=== PATIENT | female | born 1970 ===

== ENCOUNTER 2016-09-11 01:19 | Observation (INO) | payer OTHER ==
[2016-09-11] MEDS ORDERED: Sodium Chloride 0.9% 1,000 ML IV STA ×2 (02:43→03:46)
--- NOTE | 2016-09-11 03:06 | ED PDOC ---
HPI: General Adult Time Seen by Provider: 09/11/16 02:10 Chief Complaint (Nursing): Dental Pain Chief Complaint (Provider): bleeding from gums History Per: Patient, Family History/Exam Limitations: no limitations Onset/Duration Of Symptoms: Hrs Current Symptoms Are (Timing): Gone Now Additional History Per: Patient, Family Additional Complaint(s): 46 y/o female history of hypothyroid, anemia presents for eval of gingival bleeding x 5 hours. Patient states bleeding started spontaneously around 20:00 last night, and did not stop until arrival to ED this am. notes moderate amount of blood loss. Patient now complaining of dizziness. notes patient to have almost "passed out" upon arrival to ED. Denies headache, vision changes, extremity numbness/weakness, chest pain, shortness of breath, palpitations, abdominal pain. states patient has had similar episodes in past, and has required blood transfusion at [facility] [place] in 2014. states patient saw a community development specialist once a few months ago, was sent for blood work, but never followed up for results. Past Medical History Reviewed: Historical Data, Nursing Documentation, Vital Signs Vital Signs: Last Vital Signs Temp 97.8 F 09/11/16 04:37 Pulse 78 09/11/16 05:58 Resp 15 09/11/16 05:58 BP 127/68 09/11/16 05:58 Pulse Ox 100 09/11/16 05:58 - Medical History PMH: Anemia, Hypothyroidism - Surgical History Surgical History: Appendectomy (2009) - Family History Family History: States: Unknown Family Hx - Immunization History Hx Tetanus Toxoid Vaccination: No Hx Influenza Vaccination: No Hx Pneumococcal Vaccination: No - Home Medications Home Medications: Ambulatory Orders Medication Instructions Recorded No Known Home Med 09/11/16 - Allergies Allergies/Adverse Reactions: Allergies Allergy/AdvReac Type Severity Reaction Status Date / Time No Known Allergies Allergy Verified 04/20/16 23:12 Review of Systems ROS Statement: Except As Marked, All Systems Reviewed And Found Negative Neurological: Positive for: Dizziness Physical Exam - Reviewed Nursing Documentation Reviewed: Yes Vital Signs Reviewed: Yes - Physical Exam Appears: Positive for: Well, Non-toxic, Uncomfortable Head Exam: Positive for: ATRAUMATIC, NORMAL INSPECTION, NORMOCEPHALIC Skin: Positive for: Normal Color Eye Exam: Positive for: Normal appearance ENT: Positive for: Normal ENT Inspection Cardiovascular/Chest: Positive for: Regular Rate, Rhythm Respiratory: Positive for: Normal Breath Sounds Gastrointestinal/Abdominal: Positive for: Normal Exam Extremity: Positive for: Normal ROM Neurologic/Psych: Positive for: Alert, Oriented - Laboratory Results Result Diagrams: 09/11/16 03:00 09/11/16 03:00 - ECG ECG: Positive for: Viewed By Me (reviewed by ED attending) ECG Rhythm: Positive for: Sinus Rhythm O2 Sat by Pulse Oximetry: 99 Pulse Ox Interpretation: Normal - Radiology X-Ray: Viewed By Me X-Ray Interpretation: No Acute Disease - Progress ED Course And Treament: Patient BP 70/30, HR 80's. EKG, labs, IV fluid boluses ordered On re-eval, patient states she is feeling better; BP 90/60 Dr. Hall spoke with Dr. Strong, hospitalist on-call, for placement on observation for symptomatic anemia, hypotension Disposition - Clinical Impression Clinical Impression: Bleeding diathesis, Anemia, Hypotension - Patient ED Disposition Is Patient to be Admitted: Yes - Disposition Disposition Time: 03:45 Condition: FAIR - Pt Status Changed To: Hospital Disposition Of: Observation
[2016-09-11 03:15] LABS: BASO # 0.1 K/uL (0.0-0.2); BASO % 1.1 % (0.0-2.0); EOS # 0.2 K/uL (0.0-0.7); EOS % 2.8 % (0.0-4.0); HEMATOCRIT 23.3 % (34.0-47.0); LYMPH # 3.4 K/uL (1.0-4.3); LYMPH % 45.5 % (20.0-40.0); MEAN CELL VOLUME 78.9 fl (81.0-99.0); MEAN CORPUSCULAR HEMOGLOBIN 26.9 pg (27.0-31.0); MEAN CORPUSCULAR HGB CONC 34.1 g/dL (33.0-37.0); MEAN PLATELET VOLUME 9.7 fl (7.2-11.7); MONO # 0.4 K/uL (0.0-0.8); MONO % 5.9 % (0.0-10.0); NEUT # 3.4 K/uL (1.8-7.0); NEUT % 44.7 % (50.0-75.0); NRBC % 0.1 % (0.0-0.0); RED CELL DISTRIBUTION WIDTH 13.7 % (11.5-14.5); WHITE BLOOD COUNT 7.5 K/uL (4.8-10.8)
[2016-09-11 03:17] LABS: CHLORIDE 106 mmol/L (98-107)
[2016-09-11 03:18] LABS: POTASSIUM 3.3 MMOL/L (3.6-5.0); SODIUM 141 mmol/l (132-148)
[2016-09-11 03:20] LABS: ALB/GLOB RATIO 1.3 (1.0-2.1); ALKALINE PHOSPHATASE 186 U/L (38-126); AST/SGOT 90 U/L (14-36); BILIRUBIN,TOTAL 0.5 mg/dl (0.2-1.3); BLOOD UREA NITROGEN 22 mg/dl (7-17); CARBON DIOXIDE 24 mmol/L (22-30); GFR AFRICAN-AMERICAN > 60; GLUCOSE,RANDOM 150 mg/dL (65-105); TOTAL PROTEIN 7.2 G/DL (6.3-8.2)
[2016-09-11 03:21] LABS: ALT/SGPT 79 U/L (9-52); CALCIUM 8.9 mg/dL (8.4-10.2)
[2016-09-11 04:16] LABS: PARTIAL THROMBOPLASTIN TIME 29.7 SECONDS (23.3-32.5)
[2016-09-11] MEDS ORDERED: Sodium Chloride 0.9% 1,000 ML IV SCH (04:30)
[2016-09-11] MEDS ORDERED: KCL 40MEQ/NS 1L 1,000 ML IV SCH (04:31)
--- NOTE | 2016-09-11 04:32 | CP.PCM.HP ---
History of Present Illness - History of Present Illness History of Present Illness: CC: Persistent gingival bleeding HPI: This is a 46 y/o female who was in the process of being worked up for VW disease, who comes in this evening after persistent gingival bleeding. Apparently bleeding started this evening ? after brushing teeth. It persisted until they arrived in the ED this AM. Patient had c/o dizziness, and noted she almost 'passed out' just after arriving here. Patient denies CP/SOB. Per , patient has had other episodes of bleeding in the past, and in 2014 required transfusion. 14 systems reviewed, negative other than HPI MHx: ?VW disease SHx: None Allergies: NKDA Medications: Not taking any medications Family Hx: Patient unable to provide Social Hx: Lives with , no tobacco, no EtOH Present on Admission - Present on Admission Any Indicators Present on Admission: No Past Patient History - Infectious Disease Hx of Infectious Diseases: None - Past Social History Smoking Status: Never Smoked - ENDOCRINE/METABOLIC Hx Hypothyroidism: Yes - HEMATOLOGICAL/ONCOLOGICAL Hx Anemia: Yes - PSYCHIATRIC Hx Substance Use: No - SURGICAL HISTORY Hx Appendectomy: Yes (2009) - ANESTHESIA Hx Anesthesia: Yes Meds Allergies/Adverse Reactions: Allergies Allergy/AdvReac Type Severity Reaction Status Date / Time No Known Allergies Allergy Verified 04/20/16 23:12 Physical Exam - Constitutional Appears: No Acute Distress - Head Exam Head Exam: ATRAUMATIC, NORMOCEPHALIC - Eye Exam Eye Exam: EOMI, PERRL - ENT Exam ENT Exam: Mucous Membranes Dry Additional comments: Some blood noted in mouth, no active bleeding - Neck Exam Neck exam: Positive for: Full Rom - Respiratory Exam Respiratory Exam: Clear to Auscultation Bilateral, NORMAL BREATHING PATTERN - Cardiovascular Exam Cardiovascular Exam: REGULAR RHYTHM, +S1, +S2 - GI/Abdominal Exam GI & Abdominal Exam: Normal Bowel Sounds, Soft - Extremities Exam Extremities exam: Positive for: full ROM, normal inspection - Psychiatric Exam Psychiatric exam: Normal Affect, Normal Mood - Skin Skin Exam: Dry, Warm Results - Vital Signs Recent Vital Signs: Last Vital Signs Temp 98.9 F 09/11/16 01:38 Pulse 76 09/11/16 03:55 Resp 14 09/11/16 03:55 BP 109/65 09/11/16 03:55 Pulse Ox 100 09/11/16 03:55 - Labs Result Diagrams: 09/11/16 03:00 09/11/16 03:00 Labs: Laboratory Results - last 24 hr 09/11/16 03:50 PT 11.4 H INR 1.10 H APTT 29.7 Assessment & Plan (1) Anemia Assessment and Plan: 46 y/o with possibly undiagnosed coagulopathy (?VWD) presenting with persistent gingival bleeding and significant anemia. -Admit for obs/tele -Repeat CBC in 4h -Type and screen -Heme consult ([place]) -SCDs only for DVT PPx Status: Acute (2) DVT prophylaxis Status: Acute (3) Gingival bleeding Status: Acute
[2016-09-11 07:11] LABS: HEMATOCRIT 20.8 % (34.0-47.0); MEAN CORPUSCULAR HEMOGLOBIN 26.7 pg (27.0-31.0); MEAN CORPUSCULAR HGB CONC 33.8 g/dL (33.0-37.0); WHITE BLOOD COUNT 6.1 K/uL (4.8-10.8)
--- NOTE | 2016-09-11 07:43 | CARD ---
APPROVED REPORT EKG Measurement Heart [id number] <Conclusion> Normal sinus rhythm Nonspecific T wave abnormality Prolonged QT Abnormal ECG
--- NOTE | 2016-09-11 13:12 | CP.PCM.CON ---
History of Present Illness - History of Present Illness History of Present Illness: 46 year old female with a history of type 1 von willebrands disease, presenting with prolonged gingival bleeding and anemia. The patient reports to prolonged spontaneous gingival bleeding for several hours. She began to feel dizzy which prompted her to bring her to the ER. In the ER her hgb nadirid at 7 and she was transfused 1U PRBC. She reports to feeling better and her gingival bleeding has resolved. Past medical history: Type 1 VWD Past surgical history: None Family history: Brother get frequent node bleedings. Social history: Denies tobacco, alcohol, and illicit drug use. Allergies: NKA Review of systems: All remaining review of systems including HEENT, cardiovascular, respiratory, gastrointestinal, genitourinary, musculoskeletal, dermatologic, neurologic, and psychiatric are negative unless mentioned in the HPI. Past Patient History - Infectious Disease Hx of Infectious Diseases: None - Past Social History Smoking Status: Never Smoked - ENDOCRINE/METABOLIC Hx Hypothyroidism: Yes - HEMATOLOGICAL/ONCOLOGICAL Hx Anemia: Yes - PSYCHIATRIC Hx Substance Use: No - SURGICAL HISTORY Hx Appendectomy: Yes (2009) - ANESTHESIA Hx Anesthesia: Yes Meds Allergies/Adverse Reactions: Allergies Allergy/AdvReac Type Severity Reaction Status Date / Time No Known Allergies Allergy Verified 09/11/16 15:36 - Medications Medications: Current Medications Oral Electrolytes (Kcl 40meq/ 0.9% 1l) 1,000 mls @ 122.549 mls/hr IV [id number] JAYESH Last Admin: 09/11/16 04:54 Dose: 122.549 mls/hr Physical Exam - Head Exam Head Exam: ATRAUMATIC - Eye Exam Eye Exam: Normal appearance - ENT Exam ENT Exam: Mucous Membranes Dry - Respiratory Exam Respiratory Exam: NORMAL BREATHING PATTERN - Cardiovascular Exam Cardiovascular Exam: +S1, +S2 - GI/Abdominal Exam GI & Abdominal Exam: Normal Bowel Sounds - Extremities Exam Extremities exam: Positive for: normal inspection - Neurological Exam Neurological exam: Oriented x3 - Psychiatric Exam Psychiatric exam: Normal Affect, Normal Mood - Skin Skin Exam: Warm Results - Vital Signs Recent Vital Signs: Last Vital Signs Temp 97.8 F 09/11/16 04:37 Pulse 78 09/11/16 05:58 Resp 15 09/11/16 05:58 BP 127/68 09/11/16 05:58 Pulse Ox 99 09/11/16 06:25 - Labs Result Diagrams: 09/11/16 06:57 09/11/16 03:00 Labs: Laboratory Results - last 24 hr 09/11/16 09/11/16 09/11/16 03:50 06:57 09:45 WBC 6.1 RBC 2.63 L Hgb 7.0 L Hct 20.8 L MCV 79.0 L MCH 26.7 L MCHC 33.8 RDW 14.0 Plt Count 164 Retic Count PT 11.4 H INR 1.10 H APTT 29.7 Ferritin Vitamin B12 TSH 3rd Generation 1.45 Blood Type Antibody Screen Crossmatch BBK History Checked 09/11/16 09/11/16 09/11/16 09:45 09:45 09:45 WBC RBC Hgb Hct MCV MCH MCHC RDW Plt Count Retic Count 2.1 H PT INR APTT Ferritin 8.9 Vitamin B12 532 TSH 3rd Generation Blood Type O POSITIVE Antibody Screen Negative Crossmatch See Detail BBK History Checked Patient has bt Assessment & Plan (1) Anemia Assessment and Plan: gingival bleeding; resolved work up consistent with iron deficiency anemia s/p 1U PRBC will start Venofer Status: Acute (2) Von Willebrand disease, type I Assessment and Plan: gingival bleeding resolved will give 1 dose of DDAVP outpatient f/u Thank you for this interesting consult Status: Acute
--- NOTE | 2016-09-11 15:35 | RAD ---
HISTORY: Admission COMPARISON: No prior. FINDINGS: LUNGS: No active pulmonary disease. PLEURA: No significant pleural effusion identified, no pneumothorax apparent. CARDIOVASCULAR: Normal. OSSEOUS STRUCTURES: No significant abnormalities. VISUALIZED UPPER ABDOMEN: Normal. OTHER FINDINGS: None. IMPRESSION: No active disease.
[2016-09-11] MEDS ORDERED: Desmopressin 4 mcg/ml Inj (10 ml) IV ONE (15:40)
[2016-09-11 15:58] VITALS: BMI 26.9
[2016-09-11] MEDS ORDERED: SODIUM CHLORIDE 0.9% IM ONE (16:15)
[2016-09-11] MEDS ORDERED: DESMOPRESSIN IM ONE (16:15)
[2016-09-11] MEDS ORDERED: DESMOPRESSIN IV ONE (17:00)
[2016-09-11] MEDS ORDERED: SODIUM CHLORIDE 0.9% IV ONE (17:00)
[2016-09-11 17:29] LABS: FOLATE 8.9 ng/mL
[2016-09-11 20:57] VITALS: O2SAT 99
[2016-09-12] MEDS ORDERED: KCL 40MEQ/NS 1L 1,000 ML IV SCH (06:15)
[2016-09-12 08:27] LABS: EOS # 0.2 K/uL (0.0-0.7); EOS % 3.8 % (0.0-4.0); HEMATOCRIT 23.8 % (34.0-47.0); LYMPH # 2.3 K/uL (1.0-4.3); LYMPH % 47.1 % (20.0-40.0); MEAN CELL VOLUME 80.8 fl (81.0-99.0); MEAN CORPUSCULAR HGB CONC 33.4 g/dL (33.0-37.0); MEAN PLATELET VOLUME 9.5 fl (7.2-11.7); MONO # 0.3 K/uL (0.0-0.8); MONO % 5.3 % (0.0-10.0); NEUT # 2.1 K/uL (1.8-7.0); NEUT % 42.8 % (50.0-75.0); RED CELL DISTRIBUTION WIDTH 14.8 % (11.5-14.5); WHITE BLOOD COUNT 4.9 K/uL (4.8-10.8)
[2016-09-12 08:33] VITALS: BP 127/76; PULSE 68; RESP 18; TEMP 97.6
[2016-09-12 08:41] LABS: BLOOD UREA NITROGEN 22 mg/dl (7-17); CALCIUM 8.5 mg/dL (8.4-10.2); CARBON DIOXIDE 24 mmol/L (22-30); CHLORIDE 105 mmol/L (98-107); GFR AFRICAN-AMERICAN > 60; GLUCOSE,RANDOM 108 mg/dL (65-105); SODIUM 140 mmol/l (132-148)
--- NOTE | 2016-09-12 11:15 | CP.PCM.DIS ---
Provider - Provider Date of Admission: 09/11/16 03:45 Attending physician: Karin Strong MD Primary care physician: None Consults: Hematology consult Time Spent in preparation of Discharge (in minutes): 15 Hospital Course - Lab Results Lab Results: Most Recent Lab Values WBC 4.9 K/uL (4.8-10.8) 09/12/16 08:13 RBC 2.94 Mil/uL (3.80-5.20) L 09/12/16 08:13 Hgb 7.9 g/dL (12.0-16.0) L 09/12/16 08:13 Hct 23.8 % (34.0-47.0) L 09/12/16 08:13 MCV 80.8 fl (81.0-99.0) L 09/12/16 08:13 MCH 27.0 pg (27.0-31.0) 09/12/16 08:13 MCHC 33.4 g/dL (33.0-37.0) 09/12/16 08:13 RDW 14.8 % (11.5-14.5) H 09/12/16 08:13 Plt Count 175 K/uL (130-400) 09/12/16 08:13 MPV 9.5 fl (7.2-11.7) 09/12/16 08:13 Neut % (Auto) 42.8 % (50.0-75.0) L 09/12/16 08:13 Lymph % (Auto) 47.1 % (20.0-40.0) H 09/12/16 08:13 [place] % (Auto) 5.3 % (0.0-10.0) 09/12/16 08:13 Eos % (Auto) 3.8 % (0.0-4.0) 09/12/16 08:13 Baso % (Auto) 1.0 % (0.0-2.0) 09/12/16 08:13 Neut # 2.1 K/uL (1.8-7.0) 09/12/16 08:13 Lymph # 2.3 K/uL (1.0-4.3) 09/12/16 08:13 [place] # 0.3 K/uL (0.0-0.8) 09/12/16 08:13 Eos # 0.2 K/uL (0.0-0.7) 09/12/16 08:13 Baso # 0.0 K/uL (0.0-0.2) 09/12/16 08:13 Retic Count 2.1 % (0.5-1.5) H 09/11/16 09:45 PT 11.4 SECONDS (9.6-11.2) H 09/11/16 03:50 INR 1.10 (0.92-1.08) H 09/11/16 03:50 APTT 29.7 SECONDS (23.3-32.5) 09/11/16 03:50 Sodium 140 mmol/l (132-148) 09/12/16 08:13 Potassium 4.0 MMOL/L (3.6-5.0) 09/12/16 08:13 Chloride 105 mmol/L (98-107) 09/12/16 08:13 Carbon Dioxide 24 mmol/L (22-30) 09/12/16 08:13 Anion Gap 14 (10-20) 09/12/16 08:13 BUN 22 mg/dl (7-17) H 09/12/16 08:13 Creatinine 0.7 mg/dL (0.7-1.2) 09/12/16 08:13 Est GFR ( Amer) > 60 09/12/16 08:13 Est GFR (Non-Af Amer) > 60 09/12/16 08:13 Random Glucose 108 mg/dL (65-105) H 09/12/16 08:13 Calcium 8.5 mg/dL (8.4-10.2) 09/12/16 08:13 Ferritin 8.9 ng/mL 09/11/16 09:45 Total Bilirubin 0.5 mg/dl (0.2-1.3) 09/11/16 03:00 AST 90 U/L (14-36) H 09/11/16 03:00 ALT 79 U/L (9-52) H 09/11/16 03:00 Alkaline Phosphatase 186 U/L (38-126) H 09/11/16 03:00 Total Protein 7.2 G/DL (6.3-8.2) 09/11/16 03:00 Albumin 4.0 g/dL (3.5-5.0) 09/11/16 03:00 Globulin 3.2 gm/dL (2.2-3.9) 09/11/16 03:00 Albumin/Globulin Ratio 1.3 (1.0-2.1) 09/11/16 03:00 Vitamin B12 532 pg/mL (239-931) 09/11/16 09:45 Folate 8.9 ng/mL 09/11/16 09:45 TSH 3rd Generation 1.45 mIU/ML (0.46-4.68) 09/11/16 09:45 Blood Type O POSITIVE 09/11/16 09:45 Antibody Screen Negative 09/11/16 09:45 Crossmatch See Detail 09/11/16 09:45 BBK History Checked Patient has bt 09/11/16 09:45 - Hospital Course Hospital Course: 46 year old female with a history of type 1 von willebrands disease, presented with prolonged gingival bleeding and anemia. The patient reported to prolonged spontaneous gingival bleeding for several hours. She began to feel dizzy which prompted her to bring her to the ER. In the ER her hgb was 7 and she was transfused 1U PRBC.Hematology was consulted and recommended DDAVP x 1 dose and venofer IV. Patient at present hemodynamically stable, no more bleeding. Hgb 7.[address] Rich . Will discharge patient home on ferrous sulfate. Follow up with Dr. Rich in the office in 1 week She reports to feeling better and her gingival bleeding has resolved. Discharge Exam - Head Exam Head Exam: ATRAUMATIC, NORMAL INSPECTION, NORMOCEPHALIC - Eye Exam Eye Exam: EOMI, Normal appearance, PERRL Pupil Exam: NORMAL ACCOMODATION - ENT Exam ENT Exam: Mucous Membranes Moist, Normal Exam - Neck Exam Neck exam: Full Rom - Respiratory Exam Respiratory Exam: Clear to PA & Lateral, NORMAL BREATHING PATTERN. absent: Rales, Rhonchi, Wheezes - Cardiovascular Exam Cardiovascular Exam: REGULAR RHYTHM, RRR, +S1, +S2. absent: JVD - GI/Abdominal Exam GI & Abdominal Exam: Normal Bowel Sounds, Soft. absent: Distended, Guarding, Rebound, Tenderness - Rectal Exam Rectal Exam: Deferred - Extremities Exam Extremities exam: normal capillary refill, normal inspection, pedal pulses present - Back Exam Back exam: NORMAL INSPECTION - Neurological Exam Neurological exam: Alert, CN II-XII Intact, Oriented x3, Reflexes Normal - Psychiatric Exam Psychiatric exam: Normal Affect, Normal Mood - Skin Skin Exam: Dry, Intact, Normal Color, Warm Discharge Plan - Discharge Medications Prescriptions: Ferrous Sulfate 325 mg PO BID #60 tablet - Follow Up Plan Condition: GOOD Disposition: HOME/ ROUTINE Patient education suggested?: Yes Instructions: Patient Safety in the Hospital (GEN), How To Wash Your Hands (GEN ), Anemia (GEN), Fall Prevention (GEN), Acquired von Willebrand Syndrome (DC) Referrals: Siva Rich MD [Staff Provider] -
--- NOTE | 2016-09-13 06:37 | CARD ---
APPROVED REPORT EKG Measurement Heart [id number] <Conclusion> Normal sinus rhythm Nonspecific T wave abnormality Prolonged QT Abnormal ECG
== END 2016-09-12 14:30 | disposition home or self-care (01) ==
LOC: H.ER 01:19 → H.ERHOLD 03:45 → H.PEDS 14:38
PROVIDERS: ADMIT Internal Medicine; ATTEND Internal Medicine
DX: D62 Acute posthemorrhagic anemia (principal); I95.89 Other hypotension; D68.0 Von Willebrand disease; E03.9 Hypothyroidism, unspecified; K08.89 Other specified disorders of teeth and supporting structures

== ENCOUNTER 2018-08-14 18:51 | Emergency (ER) | payer SELFPAY ==
[2018-08-14 18:51] VITALS: BMI 26.5
[2018-08-14 19:58] VITALS: RESP 18; O2SAT 100
[2018-08-14] MEDS ORDERED: Sodium Chloride 0.9% 1,000 ML IV STA (21:30)
--- NOTE | 2018-08-14 21:55 | ED PDOC ---
HPI: General Adult Time Seen by Provider: 08/14/18 21:24 Chief Complaint (Nursing): Abdominal Pain Chief Complaint (Provider): Nausea and fatigue History Per: Patient History/Exam Limitations: no limitations Onset/Duration Of Symptoms: Other (one week ) Current Symptoms Are (Timing): Still Present Additional Complaint(s): 48 year old female with pmhx of hypothyroidism presents to the ED for an evaluation of nausea and fatigue onset for one week. Patient reports she is approximately one year menopausal but feels the symptoms are similar to including nausea, fatigue, excessive sleepiness. Patient is compliant with thyroid medication. Otherwise, she denies vomiting, diarrhea, fever, cough, shortness of breath and chest pain. PMD: no family provider Past Medical History Reviewed: Historical Data, Nursing Documentation, Vital Signs Vital Signs: Last Vital Signs Temp 98.1 F 08/14/18 19:55 Pulse 74 08/14/18 19:55 Resp 18 08/14/18 19:55 BP 137/72 08/14/18 19:55 Pulse Ox 100 08/14/18 19:55 Primary Care Provider: Chanel Grant - Medical History PMH: Anemia, HTN (NO MEDS 05/28/17), Hypothyroidism Denies: Diabetes, Hepatitis, HIV, Chronic Kidney Disease, Seizures, Sexually Transmitted Disease - Surgical History Surgical History: Appendectomy (2009) - Family History Family History: States: Unknown Family Hx - Social History Current smoker - smoking cessation education provided: No Alcohol: None Drugs: Denies - Immunization History Hx Tetanus Toxoid Vaccination: No Hx Influenza Vaccination: No Hx Pneumococcal Vaccination: No - Home Medications Home Medications: Ambulatory Orders Medication Instructions Recorded Levothyroxine [Synthroid] 125 mcg PO DAILY 05/12/17 Nitrofurantoin Macrocrystals 1 cap PO BID #14 cap 08/06/18 [Macrobid] - Allergies Allergies/Adverse Reactions: Allergies Allergy/AdvReac Type Severity Reaction Status Date / Time NSAIDS (Non-Steroidal Allergy BLEEDING Verified 08/14/18 19:55 Anti-Inflamma naproxen AdvReac Severe VOMITING Verified 08/14/18 19:55 Review of Systems ROS Statement: Except As Marked, All Systems Reviewed And Found Negative Constitutional: Positive for: Other (fatigue ). Negative for: Fever Cardiovascular: Negative for: Chest Pain Respiratory: Negative for: Cough, Shortness of Breath Gastrointestinal: Positive for: Nausea. Negative for: Vomiting, Abdominal Pain, Diarrhea Physical Exam - Reviewed Nursing Documentation Reviewed: Yes Vital Signs Reviewed: Yes - Physical Exam Appears: Positive for: Well, Non-toxic, No Acute Distress Head Exam: Positive for: ATRAUMATIC, NORMAL INSPECTION, NORMOCEPHALIC Skin: Positive for: Normal Color, Warm, Dry. Negative for: Rash Eye Exam: Positive for: EOMI, Normal appearance, PERRL ENT: Positive for: Normal ENT Inspection Neck: Positive for: Normal, Painless ROM. Negative for: Supple, Decreased ROM Cardiovascular/Chest: Positive for: Regular Rate, Rhythm. Negative for: Murmur Respiratory: Positive for: Normal Breath Sounds. Negative for: Decreased Breath Sounds, Wheezing, Respiratory Distress Gastrointestinal/Abdominal: Positive for: Normal Exam, Soft. Negative for: Tenderness Back: Positive for: Normal Inspection. Negative for: L CVA Tenderness, R CVA Tenderness Extremity: Positive for: Normal ROM. Negative for: Tenderness, Pedal Edema, Deformity Neurological/Psych: Positive for: Awake, Alert, Normal Tone, Oriented (x3) - Laboratory Results Result Diagrams: 08/14/18 21:42 08/14/18 21:42 - ECG O2 Sat by Pulse Oximetry: 100 (RA) Pulse Ox Interpretation: Normal Medical Decision Making Medical Decision Making: Time: 2128 Impression: 48yo female with nonspecific weakness Plan: EKG CMP BETA-HCG, quantitative Magnesium TSH ED urine ED urine dipstick CBC w/ differential Normal Saline 1000 mls/hr Heplock insertion UA 00:35 Labs reviewed and reveal no significant abnormalities with the exception of elevated TSH. Patient is aware and will follow up in the morning with the [facility]. Diagnosis is hypothyroidism. - Scribe Attestation: Documented by Velasquez Noguera, acting as a scribe for Shelton Hall MD Provider Scribe Attestation: All medical record entries made by the Scribe were at my direction and personally dictated by me. I have reviewed the chart and agree that the record accurately reflects my personal performance of the history, physical exam, medical decision making, and the department course for this patient. I have also personally directed, reviewed, and agree with the discharge instructions and disposition. Disposition - Clinical Impression Clinical Impression: Hypothyroidism - Patient ED Disposition Is Patient to be Admitted: No - Disposition Referrals: [facility] [Outside] Disposition: Routine/Home Disposition Time: 00:35 Condition: STABLE Instructions: Hypothyroidism (Underactive Thyroid) Forms: [facility] (Japanese) Print Language: LATVIAN
[2018-08-14 22:10] LABS: BASO # 0.1 K/uL (0.0-0.2); BASO % 0.9 % (0.0-2.0); EOS # 0.2 K/uL (0.0-0.7); EOS % 3.6 % (0.0-4.0); HEMOGLOBIN 13.4 g/dL (12.0-16.0); LYMPH # 2.3 K/uL (1.0-4.3); LYMPH % 39.5 % (20.0-40.0); MEAN CORPUSCULAR HEMOGLOBIN 27.5 pg (27.0-31.0); MEAN CORPUSCULAR HGB CONC 33.5 g/dL (33.0-37.0); MEAN PLATELET VOLUME 9.4 fl (7.2-11.7); MONO # 0.3 K/uL (0.0-0.8); MONO % 5.6 % (0.0-10.0); NEUT # 2.9 K/uL (1.8-7.0); NEUT % 50.4 % (50.0-75.0); NRBC % 0.2 % (0.0-0.0); RBC 4.87 Mil/uL (3.80-5.20); RED CELL DISTRIBUTION WIDTH 13.9 % (11.5-14.5); WHITE BLOOD COUNT 5.8 K/uL (4.8-10.8)
[2018-08-14 22:19] LABS: ALB/GLOB RATIO 1.2 (1.0-2.1); ALBUMIN 4.7 g/dL (3.5-5.0); ALT/SGPT 35 U/L (9-52); AST/SGOT 59 U/L (14-36); BLOOD UREA NITROGEN 20 mg/dl (7-17); CALCIUM 9.4 mg/dL (8.4-10.2); GFR NON-AFRICAN AMERICAN > 60
[2018-08-15 02:57] VITALS: BP 124/68; PULSE 81; TEMP 98.4
[2018-08-15 10:20] LABS: T3 0.711 nmol/L (1.49-2.60)
== END 2018-08-15 00:55 | disposition home or self-care (01) ==
LOC: H.ER 18:51
DX: E03.9 Hypothyroidism, unspecified (principal); I10 Essential (primary) hypertension; Z88.6 Allergy status to analgesic agent
CPT/HCPCS: 80053; 83735; 84436; 84443; 84480; 84702; 85025; 99284; J7030